=== PATIENT | male | born 1945 | race Caucasian/White ===

== ENCOUNTER 2017-03-31 07:26 | Outpatient (CLI) | payer MEDICARE, OTHER | END 2017-03-31 07:27 | disposition home or self-care (01) | DX: E74.39 Other disorders of intestinal carbohydrate absorption (principal); E78.5 Hyperlipidemia, unspecified ==

== ENCOUNTER 2022-09-25 13:28 | Outpatient (CLI) | payer MEDICARE, OTHER ==
--- NOTE | 2022-09-25 15:35 | XRAY Report ---
PROCEDURE: Toe(s) RT INDICATIONS: TOE PX TECHNIQUE: 3 views of the first toe(s) acquired. COMPARISON: None FINDINGS: Bones: Multiple bone fragments are seen at the medial side of the first digit interphalangeal joint. 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 No displaced fracture or dislocation. Soft tissues: No suspicious calcifications otherwise. IMPRESSION: Age-indeterminate multiple bone fragments are seen at the medial side of the first interphalangeal stone int, possibly from prior injury. 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 If there is high concern for further derangement, consider MRI evaluation. Reviewed by: Chava Meehan MD on 09/25/2022 3:33 PM PST Approved by: Chava Meehan MD on 09/25/2022 3:33 PM PST Station ID: [id number]
== END 2022-09-25 13:29 | disposition home or self-care (01) ==
LOC: DI 13:28
PROVIDERS: ATTEND Nurse Practitioner Family
DX: M19.071 Primary osteoarthritis, right ankle and foot (principal)